=== PATIENT | female | born 1975 | race Caucasian/White ===

== ENCOUNTER 2018-12-08 05:44 | Emergency (ER) | payer SELFPAY ==
[~2018-12-08] VITALS: Ht 167.6 cm; Wt 81.7 kg
[~2018-12-08 05:44] MED LIST: CEPH250SUA PO; HYDACE7.5L PO
[2018-12-08] MEDS ORDERED: Multivitamin1 EAC1 PO (06:06)
[2018-12-08] MEDS ORDERED: Ferrous Sulfat325 M2 PO (06:06)
[2018-12-08] MEDS ORDERED: CHOL10002 PO (06:06)
[2018-12-08] MEDS ORDERED: Flonase 0.05% N16 GM (06:31)
[2018-12-08] MEDS ORDERED: Pseudoephedrine30 MG PO (06:31)
== END 2018-12-08 06:40 | disposition home or self-care (01) ==
LOC: ER 05:44
DX: J06.9 Acute upper respiratory infection, unspecified (principal); D64.9 Anemia, unspecified; Z79.899 Other long term (current) drug therapy; Z88.8 Allergy status to other drugs, medicaments and biological substances; Z88.2 Allergy status to sulfonamides
CPT/HCPCS: 99283; J1100

== ENCOUNTER 2020-08-22 10:19 | Day surgery (SDC) | payer OTHER ==
[~2020-08-22] VITALS: Ht 167.6 cm; Wt 85.2 kg
[~2020-08-22 10:19] MED LIST changes: +CHOL10002 PO; +Ferrous Sulfat325 M2 PO; +Flonase 0.05% N16 GM; +Multivitamin1 EAC1 PO; +Pseudoephedrine30 MG PO
--- NOTE | 2020-08-22 12:55 | NUR ---
08/22/20 1255 Felicita Harding ORSC.JAR LOWER PREP ORSC.JHP UPPER PREP FC DC'D IN OR AT END OF CASE
== END 2020-08-22 14:40 | disposition home or self-care (01) ==
LOC: ORSCSDS 10:19
PROVIDERS: Obstetrics & Gynecology
PROC: 0UT74ZZ Resection of Bilateral Fallopian Tubes, Percutaneous Endoscopic Approach (ICD-10-PCS; principal; 2020-08-22 12:00)
PROC: 0UDB8ZX Extraction of Endometrium, Via Natural or Artificial Opening Endoscopic, Diagnostic (ICD-10-PCS; principal; 2020-08-22 12:00)
PROC: 0U5B8ZZ Destruction of Endometrium, Via Natural or Artificial Opening Endoscopic (ICD-10-PCS; principal; 2020-08-22 12:00)
DX: Z30.2 Encounter for sterilization (principal); N92.1 Excessive and frequent menstruation with irregular cycle; D50.0 Iron deficiency anemia secondary to blood loss (chronic); Q50.5 Embryonic cyst of broad ligament; E28.2 Polycystic ovarian syndrome; J45.909 Unspecified asthma, uncomplicated
CPT/HCPCS: 88302; 88305; A9270; J0171; J0690; J1100; J1885; J2250; J2405; J2704; J2710; J3010; J7120